=== PATIENT | female | born 1935 | race Hispanic/Latino ===

== ENCOUNTER 2019-03-03 13:27 | Emergency (ER) | payer MEDICARE ==
[2019-03-03] MEDS ORDERED: FAMOTIDINE/PF 20 MG/2 ML VIAL IV ONE (14:31)
[2019-03-03 15:07] LABS: BASOPHILS % (AUTO) 0.5 % (0.0-5.0); EOSINOPHILS % (AUTO) 1.5 % (0.0-8.0); HEMATOCRIT 31.7 % (36-48); MEAN CORPUSCULAR HEMOGLOBIN 29.5 pg (27.0-33.0); MEAN CORPUSCULAR HGB CONC 33.5 g/dL (32.0-36.0); MEAN CORPUSCULAR VOLUME 87.9 fL (79-99); MONOCYTES % (AUTO) 26.6 % (3.0-13.0); NEUTROPHILS % (AUTO) 50.4 % (40.0-77.0); NUCLEATED RED BLOOD CELLS 0.1 % (0.0-0.19); PLATELET COUNT (AUTO) 192 K/uL (130-400); RED CELL DISTRIBUTION WIDTH 15.4 % (11.0-15.5); WHITE BLOOD COUNT (AUTO) 3.2 K/uL (4.8-10.8)
[2019-03-03 15:20] LABS: CREATININE 1.1 mg/dL (0.5-1.5); POTASSIUM 3.8 mmol/L (3.5-5.1)
[2019-03-03 15:25] LABS: APPEARANCE,URINE Clear (CLEAR); BILIRUBIN,URINE Negative (NEGATIVE); COLOR,URINE Dark Yellow (YELLOW); GLUCOSE, URINE (UA) Negative (NEGATIVE); KETONES,URINE Negative (NEGATIVE); LEUKOCYTE ESTERASE ,URINE Trace (NEGATIVE); NITRATE,URINE Negative (NEGATIVE); OCCULT BLOOD,URINE Negative (NEGATIVE); PROTEIN,URINE Trace mg/dL (NEGATIVE); UROBILINOGEN,URINE 0.2 mg/dL (0.2-1.0)
[2019-03-03 15:25] LABS: ALBUMIN 3.4 g/dL (3.5-5.0); BILIRUBIN,TOTAL 0.2 mg/dL (0.2-1.0); TOTAL PROTEIN, SERUM 7.3 g/dL (6.0-8.3)
[2019-03-03 15:41] LABS: RBC,URINE 0-1 /HPF (0-1)
[2019-03-03 15:42] LABS: BACTERIA,URINE Few /HPF (None Seen)
[2019-03-03 15:44] LABS: SQUAMOUS EPITHELIAL CELL,UR Few /HPF (0-2)
[2019-03-03 15:45] LABS: AMORPHOUS SEDIMENT,UR Few /LPF (None Seen)
[2019-03-03] MEDS ORDERED: CEFTRIAXONE SODIUM 1 GM ONE (16:28)
[2019-03-03] MEDS ORDERED: SIMETHICONE 80 MG TAB.CHEW ONE (16:28)
[2019-03-03] MEDS ORDERED: DIPHENOXYLATE HCL/ATROPINE 2.5/0.025 MG TAB PO ONE (17:28)
== END 2019-03-03 17:47 | disposition home or self-care (01) ==
LOC: EDH 13:27
DX: N30.00 Acute cystitis without hematuria (principal); K29.00 Acute gastritis without bleeding; E86.9 Volume depletion, unspecified; E11.9 Type 2 diabetes mellitus without complications; Z98.890 Other specified postprocedural states
CPT/HCPCS: 36415; 76705; 80053; 81001; 82550; 83690; 84484; 85025; 87088; 93005; 96361; 96374; 96375; 99285; J0696; J3490